=== PATIENT | male | born 1965 | race Caucasian/White ===

== ENCOUNTER 2017-05-14 10:05 | Emergency (ER) | payer BC ==
[~2017-05-14 10:05] MED LIST: CIPRO PO; FLOMAX0.4 MG PO; PHENERGAN25 MG PO; SIMVASTATIN20 MG PO; TYLENOL #3 PO; TYLOX 5/500 CAP1 CAP PO; VICODIN PO; VOLTAREN50 MG PO
== END 2017-05-14 10:35 | disposition home or self-care (01) ==
LOC: SED 10:05
DX: T15.11XA Foreign body in conjunctival sac, right eye, initial encounter (principal); H10.31 Unspecified acute conjunctivitis, right eye; E78.5 Hyperlipidemia, unspecified; F17.200 Nicotine dependence, unspecified, uncomplicated; Z87.442 Personal history of urinary calculi; Z79.899 Other long term (current) drug therapy
CPT/HCPCS: 65205; 99283